=== PATIENT | male | born 1980 | race Caucasian/White ===

== ENCOUNTER 2019-03-20 16:44 | Emergency (ER) | payer MEDICARE ==
[2019-03-20 16:53] VITALS: BMI 36.5
[2019-03-20] MEDS ORDERED: VOLTAREN75 MG PO (20:31)
[2019-03-20 20:50] VITALS: BP 142/85
== END 2019-03-20 20:50 | disposition home or self-care (01) ==
LOC: D.ER 16:44
DX: S93.402A Sprain of unspecified ligament of left ankle, initial encounter (principal); X50.1XXA Overexertion from prolonged static or awkward postures, initial encounter; Y93.89 Activity, other specified; Y92.89 Other specified places as the place of occurrence of the external cause